=== PATIENT | male | born 1975 | race Two or more races ===

== ENCOUNTER 2024-12-01 06:40 | Day surgery (SDC) | payer MEDICAID, SELFPAY ==
[2024-11-28 11:47] VITALS: BMI 23.3
[2024-12-01] VITALS (8 sets, daily range): BP systolic 116–152; BP diastolic 81–107; PULSE 71–87; RESP 13–18; TEMP 36.4–36.7; O2SAT 99–100; BMI 22.3
[2024-12-01] MEDS: SODIUM CHLORIDE 0.9% 500 ML 500 ML 20 ML IV (08:00)
[2024-12-01] MEDS: DiphenhydrAMINE INJ 50 MG/ML VIAL 25 MG IV (08:03)
[2024-12-01] MEDS: fentaNYL CIT INJ 50 mCg/ML AMP 2ML (ASD USE ONLY) IV (08:06)
[2024-12-01] MEDS: MIDAZOLAM INJ 1 MG/ML VIAL 2 ML (ASD USE ONLY) 2 MG IV (08:06)
[2024-12-01] MEDS: SIMETHICONE 40 MG/0.6 ML ORAL SYRINGE PO (08:07)
== END 2024-12-01 09:07 | disposition home or self-care (01) ==
PROVIDERS: PCP Obstetrics & Gynecology; Referring Provider Surgery; Visit Provider Surgery
PROC: 0DBE8ZX Excision of Large Intestine, Via Natural or Artificial Opening Endoscopic, Diagnostic (ICD-10-PCS; CPT 45380; principal; 2024-12-01 08:00)
DX: Z12.11 Encounter for screening for malignant neoplasm of colon (principal); K64.1 Second degree hemorrhoids; K57.30 Diverticulosis of large intestine without perforation or abscess without bleeding
CPT/HCPCS: 45378; J1200; J2250; J3010; J7040; A9270